=== PATIENT | female | born 1960 | race Caucasian/White ===

== ENCOUNTER 2022-01-23 09:22 | Emergency (ER) | payer OTHER, SELFPAY ==
--- NOTE | ~2022-01-23 | XR_ITS ---
EXAMINATION: XR CHEST CLINICAL INFORMATION: Shortness of breath. COMPARISON: None TECHNIQUE: 2 views of the chest were obtained. FINDINGS: No significant abnormality is noted involving the heart, lungs, mediastinum, bony thorax or soft tissues. XR/XR chest 2V IMPRESSION: Unremarkable examination.
[2022-01-23 10:06] VITALS: BP 174/97; PULSE 87; RESP 20; TEMP 36.8; O2SAT 95; BMI 27.1
[2022-01-23 10:56] LABS: MANUAL DIFF FLAG NO
[2022-01-23 11:08] LABS: Basophils Absolute Auto 0.1 X10*3/uL (0.0-0.2); Basophils Percent Auto 0.6 % (0-2); Eosinophils Percent Auto 0.4 % (0-4); Hematocrit 42.3 % (37.0-47.0); Hemoglobin 13.8 g/dl (12.0-16.0); Imm Gran Abs Auto 0.04 X10*3/uL (0.00-0.03); Imm Gran Pct Auto 0.5 % (0.0-0.4); Lymphocytes Percent Auto 36.5 % (20-40); Mean Corpuscular HGB Conc 32.6 g/dl (31.0-35.0); Mean Corpuscular Hemoglobin 28.8 pg (27.0-33.0); Mean Corpuscular Volume 88.1 fL (80.0-98.0); Mean Platelet Volume 9.4 fL (9.4-12.3); Monocytes Absolute Auto 1.2 X10*3/uL (0.1-1.2); Platelet Count 304 X10*3/uL (160-400); Red Cell Distribution Width 13.3 % (11.0-16.0); White Blood Count 8.3 X10*3/uL (4.8-10.8)
[2022-01-23 11:28] LABS: Alanine Aminotransferase 18 U/L (0-31); Albumin Level 4.8 g/dL (3.5-5.0); Alkaline Phosphatase 70 U/L (39-117); Anion Gap 13 (12-20); Aspartate Amino Transferase 22 U/L (5-31); Bilirubin Direct < 0.2 mg/dL (0.0-0.5); Bilirubin Total < 0.2 mg/dL (0.0-1.0); Blood Urea Nitrogen 14 mg/dL (9-16); Calcium 9.6 mg/dL (8.4-10.2); Carbon Dioxide 25 mmol/L (22-29); Chloride 108 mmol/L (96-108); Estimated Glomerular Filt Rate > 60; Glucose Random 101 mg/dL (60-115); Lipase 21 U/L (8-78); Potassium 3.9 mmol/L (3.3-5.1); Sodium 142 mmol/L (135-145); Total Protein 7.6 g/dL (6.5-8.0)
--- NOTE | 2022-01-23 14:03 | ED_ITS ---
HPI - General Adult General Chief complaint: Dyspnea Stated complaint: Cough/Headache Time Seen by Provider: 01/23/22 13:42 Source: patient Mode of arrival: ambulatory Limitations: no limitations History of Present Illness HPI narrative: This is a 61 years old female presented to the emergency department with a chief complaint of cough congestion she visited the urgent care she was placed on prednisone albuterol no better. Denies any fever and chills Onset (ago): day(s) (2) Location: chest Radiation: non-radiation Severity: mild Pain Consistency: constant Relieving factors: none Related Data Previous Rx's Medication Instructions Recorded doxycycline monohydrate 100 mg 100 mg PO BID #14 caps 01/23/22 capsule Allergies Allergy/AdvReac Type Severity Reaction Status Date / Time No Known Allergies Allergy Verified 01/23/22 10:10 Review of Systems Constitutional: Constitutional: Reports no additional constitutional complaints Eyes: Eyes: Reports no additional eye complaints Cardiovascular: Cardiovascular: Reports no additional cardiovascular compla ints Respiratory: Respiratory: Reports cough Musculoskeletal: Musculoskeletal: Reports no additional musculoskeletal complaints PMFSH Social History Social History Advance Directives: No Advance Directives Information Provided: Yes Physical Exam ED Vital Signs: Vital Signs - 24 hr 01/23/22 10:06 Temperature 98.2 F Pulse Rate 87 Respiratory Rate 20 Blood Pressure 174/97 H Pulse Oximetry 95 Oxygen Delivery Method Room Air BMI result Body Mass Index 27.1 Const General: cooperative Nutritional Appearance: average body habitus and well nourished Orientation/consciousness: patient oriented x3 Limitations: no limitations HENMT Head: Yes normal to inspection General nose exam: Normal external nose present Face and sinus: Yes normal facial exam Mouth: Normal oral and palatal mucosa present Throat: Yes posterior oropharynx normal Neck Neck: Yes normal visual inspection and Yes no lymphadenopathy Thyroid: Thyroid normal Chest Chest palpation & inspection: normal inspection of the chest Resp Effort & Inspection: normal respiratory effort Auscultation: rhonchi Percussion: percussion normal Cardio Palpation: normal PMI Rhythm: regular rhythm GI Inspection: Yes normal to inspection Palpation (GI): Soft to palpation, not firm, nontender and no guarding General: Yes no CVA tenderness Back/Spine/Pelvis Back: no CVA tenderness Neuro General: patient oriented x3 Medical Decision Making [facility] Narrative Medical decision making narrative: Patient is oxygenating well she has a normal chest x-ray I will treat as bronchitis I will prescribe doxycycline 100 mg p.o. b.i.d., COVID test is negative Lab Data Result diagrams: 01/23/22 10:52 01/23/22 10:52 Labs: Lab Results 01/23/22 01/23/22 01/23/22 Range/Units 10:52 10:52 13:46 WBC 8.3 (4.8-10.8) X10*3/uL RBC 4.80 (4.20-5.50) X10*6/uL Hgb 13.8 (12.0-16.0) g/dl Hct 42.3 (37.0-47.0) % MCV 88.1 (80.0-98.0) fL MCH 28.8 (27.0-33.0) pg MCHC 32.6 (31.0-35.0) g/dl RDW 13.3 (11.0-16.0) % Plt Count 304 (160-400) X10*3/uL MPV 9.4 (9.4-12.3) fL Immature Gran % (Auto) 0.5 H (0.0-0.4) % Neut % (Auto) 48.0 (45-73) % Lymph % (Auto) 36.5 (20-40) % [place] % (Auto) 14.0 H (2-11) % Eos % (Auto) 0.4 (0-4) % Baso % (Auto) 0.6 (0-2) % Lymph # (Auto) 3.0 (1.2-4.9) X10*3/uL [place] # (Auto) 1.2 (0.1-1.2) X10*3/uL Eos # (Auto) 0.0 (0.0-0.4) X10*3/uL Baso # (Auto) 0.1 (0.0-0.2) X10*3/uL Abs Immat Gran (auto) 0.04 H (0.00-0.03) X10*3/uL Absolute Neuts (auto) 4.0 (2.0-8.3) x10*3/uL Absolute Nucleated RBC 0.000 (0.0-0.012) X10*3/uL Nucleated RBC % (auto) 0.0 (0.0-0.2) /100WBC Sodium 142 (135-145) mmol/L Potassium 3.9 (3.3-5.1) mmol/L Chloride 108 (96-108) mmol/L Carbon Dioxide 25 (22-29) mmol/L Anion Gap 13 (12-20) BUN 14 (9-16) mg/dL Creatinine 0.87 (0.5-1.4) mg/dL Estim Creat Clear Calc 65.0 Estimated GFR > 60 Random Glucose 101 (60-115) mg/dL Calcium 9.6 (8.4-10.2) mg/dL Total Bilirubin < 0.2 (0.0-1.0) mg/dL Direct Bilirubin < 0.2 (0.0-0.5) mg/dL AST 22 (5-31) U/L ALT 18 (0-31) U/L Alkaline Phosphatase 70 (39-117) U/L Total Protein 7.6 (6.5-8.0) g/dL Albumin 4.8 (3.5-5.0) g/dL Lipase 21 (8-78) U/L COVID-19 (JACK) Negative (Negative) COVID-19 Clin Com See Note Imaging Data Chest x-ray: Radiologist's impression: Accession Number(s): [id number] cc: Generic ED Physician~ EXAMINATION: XR CHEST CLINICAL INFORMATION: Shortness of breath. COMPARISON: None TECHNIQUE: 2 views of the chest were obtained. FINDINGS: No significant abnormality is noted involving the heart, lungs, mediastinum, bony thorax or soft tissues. XR/XR chest 2V IMPRESSION: Unremarkable examination. Dictated By: Rubi Curiel Signed By: <Electronically signed by Rubi? Veena in OV> 01/23/22 1046 DD/ 1035 TD/TT:? [employer]ing Press Operator: Discharge Plan Discharge Clinical Impression: Bronchitis Patient Disposition: Home, Self-Care Instructions: Acute Bronchitis (ED) Additional Instructions: Follow-up with primary care physician return to emergency room if you worse any concern Prescriptions: New doxycycline monohydrate 100 mg capsule 100 mg PO BID Qty: 14 0RF Referrals: Zo Cazares MD [Primary Care Provider] - 2 days Interventions: ED Discharge Assessment Last Done: 01/23/22 15:43 Discharge Date/Time: 01/23/22 15:44
[2022-01-23 14:20] LABS: COVID-19 Test Negative (Negative); IDNOW Serial# 9DB6401D
== END 2022-01-23 15:44 | disposition home or self-care (01) ==
PROVIDERS: Emergency Provider Emergency Medicine; PCP Internal Medicine
DX: J40 Bronchitis, not specified as acute or chronic (principal); R05.9 Cough, unspecified; R06.02 Shortness of breath; Z20.822 Contact with and (suspected) exposure to COVID-19; Z79.899 Other long term (current) drug therapy
CPT/HCPCS: 36415; 71046; 80048; 80076; 83690; 85025; 87635; 99282; 99283

== ENCOUNTER → 2022-11-15 11:04 | Outpatient (BNVA) | payer OTHER, SELFPAY | PROVIDERS: PCP Internal Medicine; Visit Provider Advanced Practice Midwife ==

== ENCOUNTER 2022-12-21 12:28 | Outpatient (REF) | payer OTHER, SELFPAY ==
--- NOTE | ~2022-12-21 | MM_ITS ---
EXAMINATION: MM SCREENING DIGITAL BREAST TOMOSYNTHESIS, BILATERAL CLINICAL INFORMATION: Screening. Asymptomatic. The lifetime risk of breast cancer based on the Tyrer-Cuzick Model is 4%. COMPARISON: Outside mammography: 11/09/2021, 01/21/2019, 01/14/2019, 08/13/2013 ([facility]). TECHNIQUE: Digital breast tomosynthesis is performed in both the craniocaudal and mediolateral oblique views along with computer-aided detection (CAD). Synthesized 2D images are generated from the tomosynthesis. FINDINGS: There are scattered areas of fibroglandular density (ACR BI-RADS breast composition Category b). There are no significant masses, abnormal calcifications, or other abnormalities. No developing density or architectural abnormality. The axilla are unremarkable. There is chronic mild bilateral nipple retraction. No significant changes from prior outside studies. MM/MM tomosynthesis screening BI IMPRESSION: No mammographic evidence of malignancy. ASSESSMENT: BI-RADS 2: Benign RECOMMENDATION: Routine annual mammography screening. This patient's information was entered into a reminder system with a target due date for their next mammogram.
== END 2022-12-21 12:29 | disposition home or self-care (01) ==
LOC: HO.MAMMO 12:28
PROVIDERS: PCP Internal Medicine; Visit Provider Advanced Practice Midwife
DX: Z12.31 Encounter for screening mammogram for malignant neoplasm of breast (principal)
CPT/HCPCS: 77063; 77067

== ENCOUNTER 2024-02-14 08:00 | Outpatient (RCR) | payer OTHER, BC, SELFPAY | END 2024-03-13 09:10 | disposition home or self-care (01) | LOC: HO.PTCHIC 08:00 | PROVIDERS: PCP Family Medicine; Visit Provider Orthopaedic Surgery | DX: M75.42 Impingement syndrome of left shoulder (principal) | CPT/HCPCS: 97110; 97140; 97162; 97164 ==

== ENCOUNTER 2025-03-10 12:46 | Outpatient (REF) | payer BC, SELFPAY ==
--- OUTSIDE RECORDS SUMMARY | 2025-03-06 08:30 | XMS_ITS | Encounter Summary ---
Author Organization [facility] Address [address] [place] [address] Care Team Providers Care Director Organizational Name Role Phone Nya Palomino MD Primary Care Pr ovider Reason for Referral * Medications - Closed Specialty Diagnoses / Procedures Referred By Radha sosa Referred To Contact Diagnoses Type 2 diabetes mellitus with diabetic polyneuropathy, without long-term current use of insulin (CMS/HCC V24, CMS/HCC V28) Overweight (BMI 25.0-29.9) Nya Palomino MD [address] [place] [address] Phone: tel: fax: Referral ID Status Reason Start Date Expiration Date Visits Re quested Visits Authorized [id number] Closed 1 1 * Consultation (Routine) - Closed Specialty Diagnoses / Procedures Referred By Radha sosa Referred To Contact Ophthalmology Diagnoses Type 2 diabetes mellitus with diabetic polyneuropathy, without long-term current use of insulin (CMS/HCC V24, CMS/HCC V28) Nya Palomino MD [address] [place] [address] Phone: tel: fax: Shaji Lanza MD [address] [place] [address] Phone: tel: fax: Referral ID Status Reason Start Date Expiration Date V isits Requested Visits Authorized [id number] Closed Specialty Services Required 03/06/2025 03/06/2026 6 6 Reason for Visit * Reason Comments Follow-up Medication review Encounter Details Date Type Department Care Team (Late st Contact Info) Description 03/06/2025 8:30 AM EDT Office Visit Adult Medicine [address] [phone] Nya Palomino MD [address] [place] [address] Primary hypertension (Primary Dx); Hypercholesterolemia ; Hyperthyroidism; Primary insomnia; Anxiety; Type 2 diabetes mellitus with diabetic polyneuropathy, without long-term current use of insulin (CMS/HCC V24, CMS/HCC V28); Overweight (BMI 25.0-29.9); Sensory neuropathy Social History Tobacco Use Types Packs/Day Years Used Date Smoking Tobacco: Former Cigarettes 0.3 15 0 07/02/1992 - 07/09/2007 Smokeless Tobacco: Never Tobacco Cessation:Counseling Given: Not Answered Alcohol Use Standard Drinks/Week Comments No 0 (1 standard drink = 0.6 oz pur e alcohol) Housing Instability Answer Date Recorde d Are you worried that in the next 2 months you may not have stable housing? No 08/13/2024 Food Access & Nutrition Answer Date Rec orded Do you have access to a vari ety of food including fruits and vegetables? Yes 08/13/2024 Health Literacy Answer Date Recorded How often do you need to hav e someone help you when you read instructions, pamphlets, or other written material from your doctor or pharmacy? Never 08/13/2024 Caregiver: How often do you need to have someone help you when you read instructions, pamphlets, or other written material from your doctor or pharmacy? Not on file 08/13/2024 Financial Risk Answer Date Recorded How hard is it for you to pa y for the very basics like food, housing, medical care, and air conditioning / heating? Very hard 08/13/2024 Transportation Answer Date Recorded Has the lack of transportati on kept you from meetings, work, or from getting things needed for daily living? Not on file 08/13/2024 Has the lack of transportati on kept you from medical appointments or from getting medications? No 08/13/2024 Social Isolation Answer Date Recorded How often do you feel lonely or isolated from th ose around you? Rarely 08/13/2024 Food Risk Answer Date Recorded Within the past 12 months we worried whether our food would run out before we got money to buy more. Never true 08/13/2024 Within the past 12 months th e food we bought just didn't last and we didn't have money to get more. Never true 08/13/2024 Dependent Care Answer Date Recorded Do you need help finding or paying for care for your loved ones. For example, child care supervisor or elderly care for an older adult? No 08/13/2024 Education Answer Date Recorded Do you think completing more education or training, like finishing a GED, going to college, or learning a trade, would be helpful for you? No 08/13/2024 Employment and Income Answer Date Recor ded During the last four weeks, have you been actively looking for work? No 08/13/2024 Living Situation Answer Date Recorded What is your living situation? 0 08/13/2024 Comments No Sex and Gender Information Value Date Recorded Sex Assigned at Not on file Legal Sex Female 3:01 PM EST Gender Identity Not on file Sexual Orientation Not on file documented as of this encounter Last Filed Vital Signs Vital Sign Reading Time Taken Comments Blood Pressure 128/80 03/06/2025 8:02 AM EDT Pulse 94 03/06/2025 8:02 AM EDT Temperature 36.6 C (97.9 F) 03/06/2025 8:02 AM EDT Respiratory Rate 16 03/06/2025 8:02 AM EDT Oxygen Saturation 97% 03/06/2025 8:02 AM EDT Inhaled Oxygen Concentration - - Weight 72.1 kg (159 lb) 03/06/2025 8:02 AM EDT Height 161.3 cm (5' 3.5 ) 03/06/2025 8:02 AM EDT Body Mass Index 27.72 03/06/2025 8:02 AM EDT documented in this encounter Ordered Prescriptions Prescription Sig Dispense Quantity Refills Last Filled Start Date End Date tirzepatide, weight loss, (ZEPBOUND) 2.5 mg/0.5 mL injectionIndicatio ns:Type 2 diabetes mellitus with diabetic polyneuropathy, without long-term current use of insulin ([facility] V24, [facility] V28),Overweight (BMI 25.0-29.9) Inject 0.5 mL (2.5 mg total) under the skin every 7 (seven) days. 2 mL 03/06/2025 04/05/2025 metoprolol succinate (TOPROL-XL) 50 mg 24 hr tabletIndications: Primary hypertension Take 1 tablet (50 mg total) by mouth 1 (one) time each day. 90 tablet 1 03/06/2025 losartan-hydroCHLO ROthiazide (HYZAAR) 50-12.5 mg per tabletIndications: Primary hypertension Take 1 tablet by mouth 1 (one) time each day. 90 tablet 1 03/06/2025 documented in this encounter Progress Notes * Nya Palomino MD - 03/06/2025 8:30 AM EDTAssociated Problem(s): Hypertension Well controlled Continue current meds Orders: losartan-hydroCHLOROthiazide (HYZAAR) 50-12.5 mg per tablet; Take 1 tablet by mouth 1 (one) time each day. metoprolol succinate (TOPROL-XL) 50 mg 24 hr tablet; Take 1 tablet (50 mg total) by mouth 1 (one) time each day. * Nya Palomino MD - 03/06/2025 8:30 AM EDTAssociated Problem(s): Hypercholesterolemia Continue taking Crestor 5 mg four times a week. Continue CoQ 10 daily Will update labs next month LDL is not at goal If still not at goal at next visit will refer to cardiology for repatha Orders: Lipid panel with reflex to direct LDL; Future * Nya Palomino MD - 03/06/2025 8:30 AM EDTAssociated Problem(s): Hyperthyroidism Continue methimazole daily * Nya Palomino MD - 03/06/2025 8:30 AM EDTAssociated Problem(s): Insomnia Continue hydroxyzine 25 mg nightly as needed * Nya Palomino MD - 03/06/2025 8:30 AM EDTAssociated Problem(s): Anxiety Continue hydroxyzine 25 mg nightly as needed * Nya Palomino MD - 03/06/2025 8:30 AM EDTAssociated Problem(s): Type 2 diabetes mellitus, without long-term current use of insulin ([facility] V24, [facility] V28) Counseled on possible side effects of zepbound Medication sent to help with weight loss Will update labs next month Lifestyle counseling provided Orders: Hemoglobin A1c; Future Microalbumin creatinine urine ratio; Future Ambulatory referral to Ophthalmology; Future tirzepatide, weight loss, (ZEPBOUND) 2.5 mg/0.5 mL injection; Inject 0.5 mL (2.5 mg total) under the skin every 7 (seven) days. * Nya Palomino MD - 03/06/2025 8:30 AM EDTAssociated Problem(s): Sensory neuropathy Unable to tolerate gabapentin Has appt with neurology at [facility] in [facility] * Nya Palomino MD - 03/06/2025 8:30 AM EDTAssociated Problem(s): Overweight (BMI 25.0-29.9) As above Orders: tirzepatide, weight loss, (ZEPBOUND) 2.5 mg/0.5 mL injection; Inject 0.5 mL (2.5 mg total) under the skin every 7 (seven) days. * Nya Palomino MD - 03/06/2025 8:30 AM EDT Images from the original note were not included. Chief Complaint Eusebia Herron is a 64 y.o. female presenting for Follow-up and Medication review Subjective Hypertension: Continues on losartan-hydrochlorothiazide 50-12.5 mg daily, metoprolol 50 mg daily. Blood pressure is 128/80 today Hyperlipidemia: taking Crestor 5 mg four times a week. Unable to tolerate daily dose due to burningand tingling as well as pain in the feet. Able to tolerate three times a week dosing. She continueswith Coq10 daily Completed EMG testing recently which showed normal motor and sensory nerve conduction study of the lower extremities except for sensory axonal loss in the left peroneal and sural nerve suggestive of sensory neuropathy but is quite asymmetric. Normal EMG of the left L5-S1 innervated muscles. She was prescribed gabapentin 300 mg nightly. States that it helped her symptoms but then she noticed it was giving her anxiety and a tingling sensation in her right ear She has an appt with neurologist at [facility] in [place] Hyperthyroidism: Follows with endocrinology- Dr. Dorado at [facility] . Continues on methimazole Continues on hydroxyzine 25 mg nightly as needed for insomnia/anxiety Type 2 DM /overweight: now with DM with recent A1c of 6.7 in December. walking on average 2.5 miles twice a week No personal history of thyroid cancer. Niece has a hx of thyroid cancer but she is currently on ozempic Denies hx of gallstones or pancreatitis She denies alcohol or tobacco use Current weight: 159lbs Has mammogram scheduled at [facility] on 03/10/25 Her [employer] is also located at [facility]. She is due for a Pap smear and is advised to call to schedule The following portions of the patient's history were reviewed by a provider in this encounter and updated as appropriate: Meds Allergies: She has No Known Allergies. Medications: Current Outpatient Medications Medication Instructions hydrOXYzine HCL (ATARAX) 25 mg, oral, Nightly PRN losartan-hydroCHLOROthiazide (HYZAAR) 50-12.5 mg per tablet 1 tablet, oral, Daily methIMAzole (TAPAZOLE) 5 mg tablet 1 tablet, Daily metoprolol succinate (TOPROL-XL) 50 mg, oral, Daily rosuvastatin (CRESTOR) 5 mg, oral, Daily tirzepatide (weight loss) (ZEPBOUND) 2.5 mg, subcutaneous, Every 7 days Depression Screening (PHQ2/9): Depression Screening Over the last 2 weeks, how often have you been bothered by little interest or pleasure in doing things?: (Patient-Rptd) Not at all Over the last 2 weeks, how often have you been bothered by feeling down, depressed, or hopeless?: (Patient-Rptd) Not at all Depression Risk: (Patient-Rptd) 0 PHQ9 Full Set of Questions Over the last 2 weeks, how often have you been bothered by little interest or pleasure in doing things?: (Patient-Rptd) Not at all Over the last 2 weeks, how often have you been bothered by feeling down, depressed, or hopeless?: (Patient-Rptd) Not at all PHQ -9 Depression Risk Score: (Patient-Rptd) 0 Screening Result: (Patient-Rptd) Negative Risk Category: (Patient-Rptd) Negative Anxiety Screening: Social Influencer of Health (SIOH): Review of Systems: Review of Systems Objective BP 128/80 Pulse 94 Temp 36.6 ??C (97.9 ??F) (Temporal) Resp 16 Ht 1.613 m (63.5 ) Wt 72.1kg (159 lb) BMI 27.72 kg/m?? SpO2: 97 % Physical Exam Constitutional: General: She is not in acute distress. Appearance: Normal appearance. She is not toxic-appearing. HENT: Head: Normocephalic and atraumatic. Cardiovascular: Rate and Rhythm: Normal rate and regular rhythm. Pulses: Normal pulses. Heart sounds: No murmur heard. Pulmonary: Effort: Pulmonary effort is normal. No respiratory distress. Breath sounds: Normal breath sounds. No wheezing. Abdominal: Palpations: Abdomen is soft. Tenderness: There is no abdominal tenderness. Musculoskeletal: Right lower leg: No edema. Left lower leg: No edema. Neurological: General: No focal deficit present. Mental Status: She is alert and oriented to person, place, and time. Psychiatric: Mood and Affect: Mood normal. Behavior: Behavior normal. Thought Content: Thought content normal. Lab Results Component Value Date CHOL 202 (H) 01/09/2025 TRIG 195 (H) 01/09/2025 HDL 48 01/09/2025 ALT 33 01/09/2025 AST 23 01/09/2025 NA 139 01/09/2025 K 4.7 01/09/2025 CL 107 01/09/2025 CREATININE 0.84 01/09/2025 BUN 11 01/09/2025 CO2 26 01/09/2025 TSH 1.56 01/09/2025 HGBA1C 6.7 (H) 01/09/2025 Lab Results Component Value Date LDLCALC 115 (H) 01/09/2025 Assessment/Plan Assessment & Plan Primary hypertension Well controlled Continue current meds Orders: losartan-hydroCHLOROthiazide (HYZAAR) 50-12.5 mg per tablet; Take 1 tablet by mouth 1 (one) time each day. metoprolol succinate (TOPROL-XL) 50 mg 24 hr tablet; Take 1 tablet (50 mg total) by mouth 1 (one) time each day. Hypercholesterolemia Continue taking Crestor 5 mg four times a week. Continue CoQ 10 daily Will update labs next month LDL is not at goal If still not at goal at next visit will refer to cardiology for repatha Orders: Lipid panel with reflex to direct LDL; Future Hyperthyroidism Continue methimazole daily Primary insomnia Continue hydroxyzine 25 mg nightly as needed Anxiety Continue hydroxyzine 25 mg nightly as needed Type 2 diabetes mellitus with diabetic polyneuropathy, without long-term current use of insulin ([facility] V24, [facility] V28) Counseled on possible side effects of zepbound Medication sent to help with weight loss Will update labs next month Lifestyle counseling provided Orders: Hemoglobin A1c; Future Microalbumin creatinine urine ratio; Future Ambulatory referral to Ophthalmology; Future tirzepatide, weight loss, (ZEPBOUND) 2.5 mg/0.5 mL injection; Inject 0.5 mL (2.5 mg total) under the skin every 7 (seven) days. Overweight (BMI 25.0-29.9) As above Orders: tirzepatide, weight loss, (ZEPBOUND) 2.5 mg/0.5 mL injection; Inject 0.5 mL (2.5 mg total) under the skin every 7 (seven) days. Sensory neuropathy Unable to tolerate gabapentin Has appt with neurology at [facility] in [place] Advised to obtain the flu vaccine and RSV vaccine at her local pharmacy Has mammogram scheduled at [facility] on 03/10/25 Her [employer] is also located at [facility]. She is due for a Pap smear and is advised to call to schedule Nya Palomino MD [facility] [address] Dept: [phone] Dept Date of Visit: 03/06/2025 documented in this encounter Plan of Treatment Upcoming Encounters Date Type Department Care Team (Late st Contact Info) Description 06/10/2025 4:00 PM EST Office Visit [address] [phone] Nya Palmoino MD [address] [place] [address] Scheduled Orders Name Type Priority Associated Diagnoses Orde r Schedule Lipid panel with reflex to direct LDL Lab Routine Hypercholesterolemia Expected: 04/05/2025, Expires: 03/06/2026 Hemoglobin A1c Lab Routine Type 2 diabetes mellitus with diabetic polyneuropathy, without long-term current use of insulin ([facility] V24, [facility] V28) Expected: 04/05/2025, Expires: 03/06/2026 Microalbumin creatinine urine ratio Lab Routine Type 2 diabetes mellitus with diabetic polyneuropathy, without long-term current use of insulin ([facility] V24, [facility] V28) Expected: 04/05/2025, Expires: 03/06/2026 Scheduled Referrals Name Type Priority Associated Diagnoses Order Schedule Ambulatory referral to Ophthalmology Outpatient Referral Routine Type 2 diabetes mellitus with diabetic polyneuropathy, without long-term current use of insulin ([facility] V24, [facility] V28) 1 Occurrences starting 03/06/2025 until 03/06/2026 documented as of this encounter Visit Diagnoses Diagnosis Primary hypertension- Primary Unspecified essential hypertension Hypercholesterolemia Pure hypercholesterolemia Hyperthyroidism Thyrotoxicosis without mention of goiter or other cause, without mention of thyrotoxic crisis or storm Primary insomnia Persistent disorder of initiating or maintaining sleep Anxiety Anxiety state, unspecified Type 2 diabetes mellitus with diabetic polyneuropathy, without long-term current use of insulin ([facility] V24, [facility] V28) Overweight (BMI 25.0-29.9) Overweight Sensory neuropathy Unspecified hereditary and idiopathic peripheral neuropathy documented in this encounter Discontinued Medications Medication Sig Discontinue Reason Start Date End Da te gabapentin (NEURONTIN) 300 mg capsule Take 1 capsule (300 mg total) by mouth at bedtime. Side effects 12/31/2024 03/06/2025 losartan-hydroCHLOROthiaz eleonora (HYZAAR) 50-12.5 mg per tabletIndications:Primary hypertension Take 1 tablet by mouth 1 (one) time each day. Reorder 10/13/2024 03/06/2025 metoprolol succinate (TOPROL-XL) 50 mg 24 hr tablet TAKE 1 TABLET BY MOUTH DAILY Reorder 10/28/2024 03/06/2025 documented as of this encounter Additional Health Concerns Assessment Noted Time PHQ-9 Depression Total Score: 0 02/28/20 25 10:33 AM EDT documented as of this encounter Care Teams Director Organizational Relationship Specialty Start Date End Date Nya Palomino MD [address] [place] [address] PCP - General 07/04/23 documented as of this encounter
--- OUTSIDE RECORDS SUMMARY | 2025-03-10 15:05 | XMS_ITS | Encounter Summary ---
Author Organization [facility] Address [address] [place] [address] Care Team Providers Care Superintendent Automotive Name Role Phone Nya Palomino MD Primary Care Pr ovider Reason for Visit * Reason Onset Date Comments prior auth 03/09/2025 Encounter Details Date Type Department Care Team (Late st Contact Info) Description 03/09/2025 Telephone Adult Medicine [address] [phone] Nya Palomino MD [address] [place] [phone] Social History Tobacco Use Types Packs/Day Years Used Date Smoking Tobacco: Former Cigarettes 0.3 15 0 07/02/1992 - 07/09/2007 Smokeless Tobacco: Never Alcohol Use Standard Drinks/Week Comments No 0 [...] your loved ones. For example, child care sitter or elderly care for an older adult? [...] on file documented as of this encounter Progress Notes * Lea Tidwell MA - 03/09/2025 1:10 PM EDT PA for zepbound initiated today on [facility] Dx Obesity,htn, dm Clinicals notes uploaded and sent to insurance company awaiting for insurance determination. * Carolina Treviño - 03/09/2025 12:40 PM EDT Prior Authorization for Medication-do not complete and send this encounter unless you have the fax from the pharmacy. Is this a Cover My Meds request: Yes -- [place] Code [id number] Name of Medication Zepbound Dose of Medication 2.5 mg What is the RX # from the faxed refill? How does patient take this med? Inject 0.5 mL (2.5 mg total) under the skin every 7 (seven} days What Pharmacy did the fax come from: [facility] fax #: [phone] documented in this encounter Plan of Treatment Upcoming Encounters Date Type Department Care Team (Late st Contact Info) Description 06/10/2025 4:00 PM EST Office Visit Adult Medicine [address] [phone] Nya Palomino MD [address] [place] [address] documented as of this encounter Visit Diagnoses Not on filedocumented in this encounter Additional Health Concerns Assessment Noted Time PHQ-9 Depression Total Score: 0 02/28/20 25 10:33 AM EDT documented as of this encounter Care Teams Superintendent Automotive Relationship Specialty Start Date End Date Nya Palomino MD [address] [place] [address] PCP - General 07/04/23 documented as of this encounter
--- OUTSIDE RECORDS SUMMARY | 2025-03-10 15:05 | XMS_ITS | Clinical Summary ---
Author Organization [facility] Address [address] [place] [phone] Phone Care Team Providers Care Upholstery Cutter Name Role Phone Nya Palomino MD Primary Care Pr ovider Allergies No known active allergies Medications methIMAzole (TAPAZOLE) 5 mg tablet Take 1 tablet (5 mg total) by mouth 1 (one) time each day. Active rosuvastatin (CRESTOR) 5 mg tablet Take 1 tablet (5 mg total) by mouth 1 (one) time each day. 90 tablet 1 5 Active hydrOXYzine HCL (ATARAX) 25 mg tabletIndications :Primary insomnia,Anxiety Take 1 tablet (25 mg total) by mouth at bedtime as needed for anxiety (sleep). 90 tablet 1 5 Active losartan-hydroCHL OROthiazide (HYZAAR) 50-12.5 mg per tabletIndications :Primary hypertension Take 1 tablet by mouth 1 (one) time each day. 90 tablet 1 5 Active metoprolol succinate (TOPROL-XL) 50 mg 24 hr tabletIndications :Primary hypertension Take 1 tablet (50 mg total) by mouth 1 (one) time each day. 90 tablet 1 5 Active tirzepatide, weight loss, (ZEPBOUND) 2.5 mg/0.5 mL injectionIndicati ons:Type 2 diabetes mellitus with diabetic polyneuropathy, without long-term current use of insulin ([facility] V24, [facility] V28),Overweight (BMI 25.0-29.9) Inject 0.5 mL (2.5 mg total) under the skin every 7 (seven) days. 2 mL 5 04/05/20 25 Active losartan-hydroCHL OROthiazide (HYZAAR) 50-12.5 mg per tabletIndications :Primary hypertension Take 1 tablet by mouth 1 (one) time each day. 90 tablet 1 5 03/06/20 25 Discontinu ed(Reorder ) metoprolol succinate (TOPROL-XL) 50 mg 24 hr tablet TAKE 1 TABLET BY MOUTH DAILY 90 tablet 1 5 03/06/20 25 Discontinu ed(Reorder ) gabapentin (NEURONTIN) 300 mg capsule Take 1 capsule (300 mg total) by mouth at bedtime. 90 each 5 03/06/20 Discontinu ed(Side effects) Active Problems Problem Noted Date Diagnosed Date Overweight (BMI 25.0-29.9) 03/06/2025 Assessment & Plan (03/06/2025 8:27 AM EDT): As above Orders: tirzepatide, weight loss, (ZEPBOUND) 2.5 mg/0.5 mL injection; Inject 0.5 mL (2.5 mg total) under the skin every 7 (seven) days. Sensory neuropathy 12/31/2024 Overview (12/31/2024): Left (noted on EMG) Assessment & Plan (03/06/2025 8:27 AM EDT): Unable to tolerate gabapentin Has appt with neurology at [facility] in Novemeber Anxiety 08/13/2024 Assessment & Plan (03/06/2025 8:27 AM EDT): Continue hydroxyzine 25 mg nightly as needed Assessment & Plan (10/13/2024 1:15 PM EDT): Continue hydroxyzine as needed Orders: hydrOXYzine HCL (ATARAX) 25 mg tablet; Take 1 tablet (25 mg total) by mouth at bedtime as needed for anxiety (sleep). Insomnia 08/13/2024 Assessment & Plan (03/06/2025 8:27 AM EDT): Continue hydroxyzine 25 mg nightly as needed Assessment & Plan (10/13/2024 1:15 PM EDT): Continue hydroxyzine as needed Orders: hydrOXYzine HCL (ATARAX) 25 mg tablet; Take 1 tablet (25 mg total) by mouth at bedtime as needed for anxiety (sleep). Type 2 diabetes mellitus, [facility] long-term current use of insulin ([facility] V24, [facility] V28) 06/01/2022 Assessment & Plan (03/06/2025 8:27 AM EDT): Counseled on possible side effects of zepbound Medication sent to help with weight loss Will update labs next month Lifestyle counseling provided Orders: Hemoglobin A1c; Future Microalbumin creatinine urine ratio; Future Ambulatory referral to Ophthalmology; Future tirzepatide, weight loss, (ZEPBOUND) 2.5 mg/0.5 mL injection; Inject 0.5 mL (2.5 mg total) under the skin every 7 (seven) days. Assessment & Plan (10/13/2024 1:15 PM EDT): Continue with lifestyle management. Last A1c was 6.1 in August Orders: Hemoglobin A1c; Future Comprehensive metabolic panel; Future Hyperthyroidism 08/23/2020 Assessment & Plan (03/06/2025 8:27 AM EDT): Continue methimazole daily Assessment & Plan (10/13/2024 1:15 PM EDT): Continue [facility] endocrinology follow-up. Continue methimazole Orders: Thyroid stimulating hormone with reflex to free t4 and free t3; Future Hypertension 04/10/2017 Assessment & Plan (03/06/2025 8:27 AM EDT): Well controlled Continue current meds Orders: losartan-hydroCHLOROthiazide (HYZAAR) 50-12.5 mg per tablet; Take 1 tablet by mouth 1 (one) time each day. metoprolol succinate (TOPROL-XL) 50 mg 24 hr tablet; Take 1 tablet (50 mg total) by mouth 1 (one) time each day. Assessment & Plan (10/13/2024 1:15 PM EDT): Blood pressure is reasonably controlled here today but much better controlled at home She will continue losartan that hydrochlorothiazide daily and metoprolol 50 mg a day Orders: losartan-hydroCHLOROthiazide (HYZAAR) 50-12.5 mg per tablet; Take 1 tablet by mouth 1 (one) time each day. Hypercholesterolemia 10/13/2013 Assessment & Plan (03/06/2025 8:27 AM EDT): Continue taking Crestor 5 mg four times a week. Continue CoQ 10 daily Will update labs next month LDL is not at goal If still not at goal at next visit will refer to cardiology for repatha Orders: Lipid panel with reflex to direct LDL; Future Assessment & Plan (10/13/2024 1:15 PM EDT): Unable to tolerate Crestor 5 mg every single day. She thinks the Crestor is causing neuropathy in her feet. Has been taking the medication 3 days a week. Her recent cholesterol levels are abnormal. She will try to increase this to 5 days a week. If she is still unable to tolerate the medication, advised we can try simvastatin. For now she wants to try to increase the Crestor to 5 mg 5 days a week. Will update labs in 3 months Orders: Lipid panel with reflex to direct LDL; Future Hepatitis C antibody test positive 06/24/2012 Overview (09/07/2023): Screening CORNEL pos but PCR neg by quantitative and qualitative assays. Assessment & Plan (10/13/2024 1:15 PM EDT): Hep C viral load was done in June 2012 and negative. Hep C virus antibody was positive in December 2011. Will update viral load Orders: Hepatitis C virus quantitative molecular study; Future Rotator cuff tendinitis 11/23/2010 Cervical radiculopathy 10/27/2010 Shoulder pain, bilateral 10/27/2010 Sinusitis, chronic 03/09/2010 Encounters Date Type Department Care Team Description 03/09/2025 Telephone Adult Medicine [address] [phone] Nya Palomino MD 03/06/2025 8:30 AM EDT Office Visit Adult [address] [phone] Nya Palomino MD Primary hypertension (Primary Dx); Hypercholesterolemia; Hyperthyroidism; Primary insomnia; Anxiety; Type 2 diabetes mellitus with diabetic polyneuropathy, without long-term current use of insulin ([facility] V24, [facility] V28); Overweight (BMI 25.0-29.9); Sensory neuropathy 02/09/2025 Telephone Adult Medicine [address] [phone] Nya Palomino MD 02/09/2025 Telephone Adult Medicine [address] [phone] Nya Palomino MD 01/21/2025 Telephone Adult Medicine [address] [phone] Nya Palomino MD 01/15/2025 Telephone Adult Medicine [address] [phone] Nya Palomino MD 12/31/2024 Telephone Adult Medicine [address] [phone] Nya Palomino MD 12/29/2024 11:56 AM EDT - 12/29/2024 11:59 PM EDT Hospital Encounter [facility] [address] [place] [phone] Other polyneuropathy Discharge Disposition: Home or Self Care from Last 3 Months Immunizations Name Administration Dates Next Due Hepatitis A-Hepatitis B Adul t (Twinrix) 18yo and older 10/27/2010,05/30/2010,04/28/2010 Influenza Quadravalent, MDCK , 0.5ml, preservative free (Flucelvax) 6mo and older 04/06/2023,04/14/2022 Influenza trivalent, MDCK, 0 .5mL, preservative free (Flucelvax) 6mo and older 03/02/2024 Influenza trivalent, with pr eservative (Fluzone; Afluria) 6mo and older 02/22/2020,02/21/2019,06/06/2018 Influenza, Unspecified 02/21/2019,06/06/2018 Moderna (age 6mo & older) Bi valent, COVID-19, 0.5 mL or 0.25 mL dosage 06/16/2022 Pneumococcal conjugate 20 va lent (Prevnar 20, PCV 20) 2mo and older 10/13/2024 Td Tetanus diptheria (Tdvax) 7yo and older 11/09 Tdap Tetanus diptheria acell ular pertussis (Boostrix; Adacel) 7yo and older 07/01/2007 Zoster recombinant (Shingrix ) 19yo and older 04/14/2022,01/11/2022 Surgical History Surgery Date Site/Laterality Comments HYSTERECTOMY 1996 PROCEDURE: HISTORICAL HYSTERECTOMY; COMMENT: bleeding; fibroids, endometriosis Medical History Medical History Date Comments Depressive disorder, not els ewhere classified 08/14/2005 DX:Depressive disorder, not elsewhere classified Endometriosis DX:Endometriosis Anxiety state, unspecified 08/14/2005 DX:An xiety state, unspecified Hepatitis C antibody test positive 06/24/2012 DX:Hepatitis C antibody test positive Family History Medical History Relation Name Comments Other: hepatitis C Brother 1 Hyperthyroidism Daughter RA Alcohol abuse Father Diabetes Mother colon cancer Depression Other pat cousins Arthritis Sister fibromyalgia, c eliac disease; HLD Other: DM Son RA Breast cancer Neg Hx Relation Name Status Comments Brother 1 Brother 2 3 brothers-subs tance abuse Daughter Father (Age 68) Mother (Age 76) Other Sister Son Alive Social History Tobacco Use Types Packs/Day Years [...] care for your loved ones. For example, attendant children's institution or elderly care for an older adult? [...] on file Sexual Orientation Not on file Obstetrics History Last Filed Vital Signs Vital Sign Reading [...] Mass Index 27.72 03/06/2025 8:02 AM EDT Plan of Treatment Upcoming Encounters Date Type Department Care Team (Late st Contact Info) Description 06/10/2025 4:00 PM EST Office Visit Adult Medicine [address] [phone] Nya Palomino MD [address] [place] [address] Health Maintenance Due Date Last Done Comments Diabetes: Annual Retina Eye Exam 1972 Cervical Cancer Screening: Pap Smear 04/23/2021 04/23/2018 HIV Screening 06/10/2022 RSV Immunization Adult Patients (1 - Risk 60-74 years 1-dose series) 2022 Breast Cancer Screening 11/10/2023 11/10/19, 01/21/2019, 01/14/2019 Diabetes: Annual Urine Albumin-Creatinine Ratio (uACR) 01/10/2025 COVID-19 Vaccine (7 - Moderna risk season) 2025 03/02/2024, 06/16/2022, 01/11/2022, Additional history exists Influenza Vaccine (#1) 2025 , 04/06/2023, 04/14/2022, Additional history exists Diabetes: Blood Sugar Control Test (HGBA1C) 07/12/2025 01/09/2025, 08/14/2024, 02/04/2024 Social Influencers of Health Screening 08/13/2025 08/13/2024 Diabetes: Annual Foot Exam 10/13/202510/13, 10/13/2024, 10/13/2024, Additional history exists Diabetes: Annual GFR (Glomerular Filtration Rate) 01/09/2026 01/09/2025, 08/14/2024 Hypertension/CHF/CAD Annual BMP Blood Test 01/09/2026 01/09/2025, 08/14/2024 Cholesterol Screening (Lipid Panel) 01/09/2030 01/09/2025, 08/14/2024, 02/04/2024, Additional history exists DTaP,Tdap,and Td Vaccines (3 - Td or Tdap) 11/10/2031 11/09/2021, 07/01/2007 Colorectal Cancer Screening: Colonoscopy 08/07/2033 08/07/2023 Hepatitis A Vaccines Aged Out 10/27/2010, 05/30/2010, 04/28/2010 No longer eligible based on patient's age to complete this topic Hepatitis B Vaccines Completed 10/27/2010, 05/30/2010, 04/28/2010 Zoster Vaccines Completed 04/14/2022, 01/11/2022 Pneumococcal Vaccine: 50+ Years Completed 10/13/2024 Hepatitis C Screening Completed 01/09/2025, 012 Depression Screening Completed 02/27/2025 HIB Vaccines Aged Out No longer eligi ble based on patient's age to complete this topic HPV Vaccines Aged Out No longer eligi ble based on patient's age to complete this topic IPV Vaccines Aged Out No longer eligi ble based on patient's age to complete this topic MMR Vaccines Aged Out No longer eligi ble based on patient's age to complete this topic Meningococcal ACWY Vaccine Aged Out N o longer eligible based on patient's age to complete this topic Meningococcal B Vaccine Aged Out No l onger eligible based on patient's age to complete this topic RSV Immunization Patients Under 20 months Aged Out No longer eligible based on patient's age to complete this topic Varicella Vaccines Aged Out No longer eligible based on patient's age to complete this topic Procedures Procedure Name Priority Date/Time Associated Diagnosis Comments HEPATITIS C VIRUS QUANTITATIVE PCR Routine 01/09/2025 8:05 AM EDT Hepatitis C antibody test positive Chronic hepatitis C without hepatic coma (CMS/HCC V24, CMS/HCC V28) LIPID PANEL WITH REFLEX TO DIRECT LDL Routine 01/09/2025 8:05 AM EDT Hypercholesterolemia HEMOGLOBIN A1C Routine 01/09/2025 8:05 AM EDT Prediabetes COMPREHENSIVE METABOLIC PANEL Routine 01/09/2025 8:05 AM EDT Prediabetes THYROID STIMULATING HORMONE WITH REFLEX TO FREE T4 AND FREE T3 Routine 01/09/2025 8:05 AM EDT Hyperthyroidism EMG Routine 12/29/2024 12:58 PM EDT Other polyneuropathy SCREENING MAMMOGRAPHY BI 2-VIEW BREAST INC CAD Routine 11/09/2021 5:41 PM EDT Encounter for screening mammogram for malignant neoplasm of breast from Last 3 Months or Most Recently Relevant to Health Maintenance Results * Thyroid stimulating hormone with reflex to free t4 and free t3 (01/09/2025 8:05 AM EDT) TSH 1.56 0.40 - 4.00 mcIU/mL LAB CHEMISTRY METHOD 01/09/2025 11:32 AM EDT [facility] ([facility]) [facility] Blood Venous blood specimen / Unknown Venipuncture / Unknown 01/09/2025 8:05 AM EDT 01/09/2025 8:05 AM EDT Nya Palomino MD LAB BLOOD ORDERA BLES Final Result Performing Organization Address City/[facility]/ZIP Co de Phone Number [facility] [address] [place] [address], [place] [phone] * (ABNORMAL) Lipid panel with reflex to direct LDL (01/09/2025 8:05 AM EDT) Cholesterol 202(H) 0 - 200 mg/dL LAB CHEMISTRY METHOD 01/09/2025 10:34 AM EDT [facility] Triglycerides 195(H) 0 - 150 mg/dL LAB CHEMISTRY METHOD 01/09/2025 10:34 AM EDT [facility] HDL 48 >=40 mg/dL LAB CHEMISTRY METHOD 01/09/2025 10:34 AM EDT [facility] LDL Calculated 115(H) 0 - 100 mg/dL LAB CHEMISTRY METHOD 01/09/2025 10:34 AM EDT [facility] VLDL Cholesterol Timo 39 mg/dL LAB CHEMISTRY METHOD 01/09/2025 10:34 AM EDT [facility] Non HDL Chol. (LDL+VLDL) 154(H) <145 mg/dL LAB CHEMISTRY METHOD 01/09/2025 10:34 AM EDT [facility] Chol/HDL Ratio 4.2 0.0 - 4.4 LAB CHEMISTRY METHOD 01/09/2025 10:34 AM EDT [facility] Blood Venous blood specimen / Unknown Venipuncture / Unknown 01/09/2025 8:05 AM EDT 01/09/2025 8:05 AM EDT Nya Palomino MD LAB BLOOD ORDERA BLES Final Result [facility] [address] [place] [address], [place] [phone] * Hepatitis C virus quantitative molecular study (01/09/2025 8:05 AM EDT) HCV Qual Interp Not Detected Not Detected LAB MOLECULAR DIAGNOSTICS METHOD 01/09/2025 12:20 PM EDT [facility] Comment:HCV RNA not detected , unable to report quantitative results. Blood Venous blood specimen / Unknown Venipuncture / Unknown 01/09/2025 8:05 AM EDT 01/09/2025 8:05 AM EDT Nya Palomino MD LAB BLOOD ORDERA BLES Final Result Performing Organization Address [facility]/ZIP Co de Phone Number [facility] [address] [place] [address], [place] [phone] * (ABNORMAL) Hemoglobin A1c (01/09/2025 8:05 AM EDT) [facility] Hemoglobin A1C 6.7(H) <6.5 % LAB CHEMISTRY METHOD 01/09/2025 1:40 PM EDT [facility] Mean Bld Glu Estim. 146 mg/dL LAB CHEMISTRY METHOD 01/09/2025 1:40 PM EDT [facility] Blood Venous blood specimen / Unknown Venipuncture / Unknown 01/09/2025 8:05 AM EDT 01/09/2025 8:05 AM EDT Nya Palomino MD LAB BLOOD ORDERA BLES Final Result [facility] [address] [place] [address], [place] [phone] * (ABNORMAL) Comprehensive metabolic panel (01/09/2025 8:05 AM EDT) [facility] Sodium 139 133 - 145 mmol/L LAB CHEMISTRY METHOD 01/09/2025 10:34 AM EDT [facility] Potassium 4.7 3.5 - 5.5 mmol/L LAB CHEMISTRY METHOD 01/09/2025 10:34 AM [facility] Chloride 107 96 - 110 mmol/L LAB CHEMISTRY METHOD 01/09/2025 10:34 AM [facility] CO2 26 21 - 32 mmol/L LAB CHEMISTRY METHOD 01/09/2025 10:34 AM [facility] Anion Gap 6 3 - 11 LAB CHEMISTRY METHOD 01/09/2025 10:34 AM [facility] Glucose 104(H) 70 - 100 mg/dL LAB CHEMISTRY METHOD 01/09/2025 10:34 AM [facility] BUN 11 5 - 25 mg/dL LAB CHEMISTRY METHOD 01/09/2025 10:34 AM [facility] Creatinine 0.84 0.50 - 1.10 mg/dL LAB CHEMISTRY METHOD 01/09/2025 10:34 AM [facility] eGFR 79 >=60 mL/min/1. 73m2 LAB CHEMISTRY METHOD 01/09/2025 10:34 AM [facility] Comment:Calculation based on the Chronic Kidney Disease Epidemiology Collaboration (CKD-EPI) equation refit without adjustment for race. BUN/Creatinine Ratio 13.1 LAB CHEMISTRY METHOD 01/09/2025 10:34 AM [facility] Calcium 9.6 8.5 - 10.5 mg/dL LAB CHEMISTRY METHOD 01/09/2025 10:34 AM [facility] AST (SGOT) 23 10 - 42 unit/L LAB CHEMISTRY METHOD 01/09/2025 10:34 AM [facility] ALT (SGPT) 33 10 - 60 unit/L LAB CHEMISTRY METHOD 01/09/2025 10:34 AM [facility] Alkaline Phosphatase 56 42 - 121 unit/L LAB CHEMISTRY METHOD 01/09/2025 10:34 AM [facility] Total Protein 7.1 6.0 - 8.0 g/dL LAB CHEMISTRY METHOD 01/09/2025 10:34 AM EDT [facility] Albumin 4.0 3.2 - 5.0 g/dL LAB CHEMISTRY METHOD 01/09/2025 10:34 AM EDT [facility] Total Bilirubin 0.3 0.0 - 1.4 mg/dL LAB CHEMISTRY METHOD 01/09/2025 10:34 AM EDT [facility] Blood Venous blood specimen / Unknown Venipuncture / Unknown 01/09/2025 8:05 AM EDT 01/09/2025 8:05 AM EDT us Nya Palomino MD LAB BLOOD ORDERA BLES Final Result [facility] [address] [place] [address], * EMG (12/29/2024 12:58 PM EDT) Narrative Delvin Cortes MD - 12/29/2024 4:37 PM EDT Images from the original result were not included. [facility] [address] [place] [address] Electromyograph Report Date of service: 12/29/24 Patient Name: Hair Herron Date of : 1960 Age: 64 y.o. Gender: female Procedure Order: EMG Ordering Provider: Nya Palomino MD Reason for Exam: There are no answered order specific questions. Diagnosis listed on Order: Other polyneuropathy Please see scanned report for testing details and results. Procedure Note Delvin Cortes MD - 12/29/2024 Images from the original note were not included. [facility] [address] [place] [address] Electromyograph Report Date of service: 12/29/24 Patient Name: Hair Herron Date of : 1960 Age: 64 y.o. Gender: female Procedure Order: EMG Ordering Provider: Nya Palomino MD Reason for Exam: There are no answered order specific questions. Diagnosis listed on Order: Other polyneuropathy Please see scanned report for testing details and results. EDT Nya Palomino MD NEUROLOGY ORDERA BLES Final Result * SCREENING MAMMOGRAPHY BI 2-VIEW BREAST INC CAD (11/09/2021 5:41 PM EDT) Anatomical Region Laterality Modality Radiographic Susan ging 05/03/2021 4:02 PM EDT Narrative 11/09/2021 5:50 PM EDT This is a summary report. The complete report is available in the patient's medical record. If you cannot access the medical record, please contact the sending organization for a detailed fax or copy. Full field digital screening 2D and tomosynthesis mammography, reviewed with CAD and compared to previous. The breasts are composed of fatty and fibroglandular tissue. No suspicious mass, architectural distortion or suspicious calcifications are identified. IMPRESSION: : No mammographic evidence of malignancy. BIRADS 1-Negative; N. 5 year breast cancer risk assessment 0.9 % Lifetime breast cancer risk assessment 5.0 % Breast cancer risk category Low (<15%) Procedure Note Jennifer Beltran MD - 06/20/2022 This is a summary report. The complete report is available in thepatient's medical record. If you cannot access the medical record, pleasecontact the sending organization for a detailed fax or copy. Full field digital screening 2D and tomosynthesis mammography, reviewedwith CAD and compared to previous. The breasts are composed of fatty andfibroglandular tissue. No suspicious mass, architectural distortion orsuspicious calcifications are identified. IMPRESSION: : No mammographic evidence of malignancy. BIRADS 1-Negative; N. 5 year breast cancer risk assessment 0.9 % Lifetime breast cancer risk assessment 5.0 % Breast cancer risk category Low (<15%) Zo Cazares MD IMG XR PROCEDURES Final Result from Last 3 Months or Most Recently Relevant to Health Maintenance Insurance [facility] Care Teams Upholstery Cutter Relationship Specialty Start Date End Date Nya Palomino MD [address] [place] [phone] PCP - General 07/04/23
== END 2025-03-10 12:47 | disposition home or self-care (01) ==
LOC: HO.MAMMO 12:46
PROVIDERS: PCP Family Medicine; Visit Provider Family Medicine
DX: Z13.89 Encounter for screening for other disorder (principal)

== ENCOUNTER 2025-05-04 12:16 | Outpatient (AMB) | payer BC, SELFPAY ==
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
--- OUTSIDE RECORDS SUMMARY | 2025-05-04 15:30 | XMS_ITS | Data Portability ---
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 Plan of Treatment Reminders Order Date Submit Date Provider Last Modified By Organization Details Last Modified Time Details Appointments FOLLOW UP 2024 11:15A M Dr. Ceballos Not available Not available Not available Lab None recorded. Referral physical therapist referral 2023 024 MAGDALENA Not available 01/04/2025 05:00:56 Procedures None recorded. Surgeries None recorded. Imaging None recorded. Medication Orders None recorded. Patient TargetsNo targets recorded. Patient Instructions Encounter Date Encounter Id Patient Instructions Last Modified By Organization Details Last Modified Time 12/26/2023 [id number] pt will go for therapy ,periscapular ,deltoid ,rotator cuff strengthening ;left shoulder. Not available 12/28/2023 19:09:20 02/27/2024 [id number] pt presents with stiffness ,left shoulder;pt has discomfort and is performing home therapy. Not available 02/27/2024 14:32:06 04/30/2024 [id number] pt with stiffnes s left shoulder,mpt will continue with periscapular strengthening left shoulder. Not available 04/30/2024 14:09:35 07/30/2024 [id number] pt with stiffnes s , ;pain left shoulder ,patient will continue with home therapy. Not available 07/30/2024 17:01:18 12/31/2024 [id number] patient will continue with home therapy and is totally disabled for the foreseeable future. Not available 01/01/2025 09:51:10 Reason for Referral Physical Therapist Referral for Subacromial impingement Referring Physician: Alonzo Ceballos, Orthopedic Surgery, Encounter Date: 12/26/2023 Procedures Surgical History Date Name Laterality Status Provider Name and Address Organization Details Recorded Time 10/29/19 24 arthroscopy of shoulder completed marisel lee [place] [facility] 10/30/2023 09:36:03 04/17/20 23 complete repair of rotator cuff completed marisel lee [place] [facility] 07/11/2023 11:51:14 Hysterectomy completed marisel lee [place] [facility] 07/11/2023 11:51:42 Imaging Results None recorded. Procedure Notes None recorded. Medical Equipment None Reported. Allergies No known drug allergies Medications Name Sig Start Date Stop Date Status Note LastModified by Organization Details LastModified Time metoprolol succinate ER 50 mg tablet,exten ded release 24 hr TAKE 1 TABLET BY MOUTH DAILY active Not Available Not Available Not Available bacitracin 500 unit/gram topical ointment APPLY TOPICALLY TO THE AFFECTED AREA TWICE DAILY FOR 14 DAYS active Not Available Not Available No t Available acetaminophe n 500 mg tablet TAKE 2 TABLETS BY MOUTH EVERY 8 HOURS FOR MILD PAIN active Not Available Not Available No t Available triamcinolon e acetonide 0.1 % topical cream APPLY TO ITCHY RED AREA ON RIGHT FLANK TWICE DAILY. DECREASE USE SYMPTOMS IMPROVE active Not Available Not Available No t Available aspirin 325 mg tablet,delay ed release TAKE 1 TABLET BY MOUTH DAILY FOR BLOOD CLOT PREVENTION active Not Available Not Available N ot Available amlodipine 5 mg-benazepri l 20 mg capsule TAKE 1 CAPSULE BY MOUTH DAILY active Not Available Not Available Not Available diclofenac potassium 50 mg tablet TAKE 1 TABLET BY MOUTH TWICE DAILY active Not Available Not Available No t Available methimazole 5 mg tablet TAKE 1 TABLET BY MOUTH DAILY active Not Available Not Available Not Available hydroxyzine HCl 25 mg tablet TAKE 1 TABLET BY MOUTH AT BEDTIME NEEDED FOR ANXIETY OR INSOMNIA active Not Available Not Available No t Available bisacodyl 5 mg tablet,delay ed release TAKE 2 TABLETS BY MOUTH BEFORE BEGINNING BOWEL PREP. FOLLOW INSTRUCTION S GIEVN BY OFFICE. active Not Available Not Available No t Available ibuprofen 600 mg tablet TAKE 1 TABLET BY MOUTH EVERY 8 HOURS FOR MODERATE PAIN. MAX 2400 MG DAILY active Not Available Not Available No t Available methimazole 10 mg tablet TAKE 1/2 TABLET BY MOUTH DAILY active Not Available Not Available Not Available losartan 50 mg-hydrochlo rothiazide 12.5 mg tablet TAKE 1 TABLET BY MOUTH 1 TIME EACH DAY active Not Available Not Available No t Available doxycycline hyclate 100 mg tablet TAKE 1 TABLET BY MOUTH TWICE DAILY FOR 7 DAYS active Not Available Not Available No t Available oxycodone 5 mg tablet TAKE 1 TABLET BY MOUTH EVERY 4 HOURS active Not Available Not Available No t Available azithromycin 500 mg tablet TAKE 1 TABLET BY MOUTH DAILY active Not Available Not Available Not Available rosuvastatin 5 mg tablet TAKE 1 TABLET BY MOUTH DAILY active Not Available Not Available Not Available Florastor 250 mg capsule TAKE 1 CAPSULE BY MOUTH EVERY DAY active Not Available Not Available No t Available GaviLyte-G 236 gram-22.74 gram-6.74 gram-5.86 gram oral solution MIX AND TAKE DIRECTED UNTIL RECTALS RUN CLEAR STARTING AT 6PM THE NIGHT BEFORE PROCEDURE. active Not Available Not Available N ot Available Stimulant Laxative Plus 8.6 mg-50 mg tablet TAKE 2 TABLETS BY MOUTH AT BEDTIME NEEDED FOR COSTIPATION active Not Available Not Available Not Available Zepbound 2.5 mg/0.5 mL subcutaneous pen injector ADMINISTER 2.5 MG UNDER THE SKIN EVERY 7 DAYS active Not Available Not Available No t Available Vitals Date Recorded Body height Body mass index (BMI) Body weight Provider Name and Address Organization Details Last Updated DateTime 07/30/2024 160.02 cm 26.9 kg/m2 61034.04 g marisel lee [place] [facility] 07/30/2024 08:07:55 Date Recorded Body height Body mass index (BMI) Body weight Provider Name and Address Organization Details Last Updated DateTime 12/26/2023 160.02 cm 26.9 kg/m2 07749.04 g marisel lee [place] [facility] 12/26/2023 13:55:17 Date Recorded Body height Body mass index (BMI) Body weight Provider Name and Address Organization Details Last Updated DateTime 12/31/2024 160.02 cm 26.9 kg/m2 11411.04 g marisel lee [place] [facility] 12/31/2024 08:18:56 Date Recorded Body height Body mass index (BMI) Body weight Provider Name and Address Organization Details Last Updated DateTime 02/27/2024 160.02 cm 26.9 kg/m2 12605.04 g marisel lee [place] [facility] 02/27/2024 10:40:18 Social History None recorded. Functional Status None recorded. Mental Status None recorded. Family History Nothing Reported. Medical History Condition Response Diabetes Y Hypertension Y Gynecological HistoryNo gynecological history recorded. Obstetrics History GPAL:G 0 P 0 0 0 0 Past Encounters Encounter ID Performer Location Encounter Start Date Encounter Closed Date Diagnosis/Indication Diagnosis SNOMED-CT Code Diagnosis ICD10 Code Diagnosis IMO Codes Diagnosis Note [id number] Alonzo Ceballos MD [facility] [address] [place] [address] 07/11/2023 11:31:00 07/12/2023 16:31:35 Subacromial impingement 900749415 M75.42 Pain of acromioclavicular joint 547148673 M25.519 Biceps tendinitis 179415 007 M75.22 [id number] Alonzo Ceballos MD [facility] [address] [place] [address] 08/29/2023 10:06:19 09/03/2023 14:23:51 Subacromial impingement 512271005 M75.42 Pain of acromioclavicular joint 312120943 M25.519 Biceps tendinitis 781537 007 M75.22 Full thick ness rotator cuff tear 651497798 M75.122 [id number] Alonzo Ceballos MD [facility] [address] [place] [address] 09/26/2023 12:40:57 09/26/2023 18:56:24 Subacromial impingement 548295716 M75.42 Osteolysis of left distal clavicle 4000584529 522461 M89.512 Tendinosis of left biceps brachii 2153888582 8461359 M67.814 Full thick ness rotator cuff tear 597604164 M75.122 [id number] [facility] [address] [place] [address] 11/06/2023 12:23:02 11/06/2023 13:08:03 Subacromial impingement 075165614 M75.42 Full thick ness rotator cuff tear 544533648 M75.121 Biceps tendinitis 205993 007 M75.21 [id number] Alonzo Ceballos MD [facility] [address] [place] [address] 12/26/2023 13:53:30 12/31/2023 09:45:36 Subacromial impingement 776661704 M75.42 Full thick ness rotator cuff tear 016345336 M75.121 Biceps tendinitis 815238 007 M75.21 [id number] Alonzo Ceballos MD [facility] [address] [place] [address] 02/27/2024 10:39:42 02/27/2024 15:11:06 Subacromial impingement 581329458 M75.42 Full thick ness rotator cuff tear 977458562 M75.122 Biceps tendinitis 032946 007 M75.22 [id number] Alonzo Ceballos MD [facility] [address] [place] [address] 04/30/2024 10:36:08 04/30/2024 14:11:03 Subacromial impingement 894245098 M75.42 Full thick ness rotator cuff tear 102394530 M75.122 Biceps tendinitis 300989 007 M75.22 [id number] Alonzo Ceballos MD [facility] [address] [place] [address] 07/30/2024 08:07:20 07/30/2024 17:04:25 Subacromial impingement 027741678 M75.42 Full thick ness rotator cuff tear 979580049 M75.122 Biceps tendinitis 656018 007 M75.22 [id number] Alonzo Ceballos MD [facility] [address] [place] [address] 12/31/2024 08:18:25 01/06/2025 16:13:28 Subacromial impingement 690696837 M75.42 Full thick ness rotator cuff tear 921881952 M75.122 Biceps tendinitis 681564 007 M75.22 Health Concerns Section Related Observation LastModified by Organization Detai ls LastModified Time None Recorded Concern Status LastModified by Organization Details LastModified Time None Recorded Advance Directives Directive None Recorded Payers Insurance Date Sequence Insurance Name Policy Number Policy Carpenter Covered Member ID Carpenter Member ID Guarantor Name 04/28/2024 [id number] Eusebia Herron Notes Date Note Type Note Provider Name and Address Organization Details Recorded Time 12/26/2023 text/html ShoulderReported by Patient pt with stiffness and discomfort on motion ;left shoulder;improving. ALONZO CEBALLOS MD [address] [place], [address], [place] [facility] 12/28/2023 19:09:56 02/27/2024 text/html ShoulderReported by Patient Patient presents with pain and stiffness ,left shoulder with discomort;patient continues with therapy ,left shoulder. ALONZO CEBALOLS MD [address] [place], [address], [place] [facility] 02/27/2024 14:32:31 04/30/2024 text/html pt presents for evaluation concerning her left shoulder.pt will continue with activity. ALONZO CEBALLOS MD [address] [place], [address], [place] [facility] 04/30/2024 14:10:06 07/30/2024 text/html ShoulderReported by Patient pt with left shoulder stiffness ,presents for evaluation left shoulder ;performing home therapy. ALONZO CEBALLOS MD [address] [place], [address], [place] [facility] 07/30/2024 17:01:46 12/31/2024 text/html ShoulderReported by Patientstiffness left shoulder complains of weakness lifting objects. ALONZO CEBALLOS MD [address] [place], [address], [place] [facility] 01/01/2025 09:51:49 OBGyn Episode No OBEpisode recorded.
--- OUTSIDE RECORDS SUMMARY | 2025-05-04 15:30 | XMS_ITS ---
Author Name [facility] Organization Unknown Care Team Organization Name Specialty Phone Email Start Date End Da te [facility] 05/09/2022 4
== END 2025-05-04 13:28 | disposition home or self-care (01) ==
PROVIDERS: PCP Family Medicine; Visit Provider Psychiatry & Neurology Neurology
DX: G62.9 Polyneuropathy, unspecified (principal); M79.2 Neuralgia and neuritis, unspecified
CPT/HCPCS: 99204

== ENCOUNTER 2025-05-04 12:16 | Outpatient (REF) | payer BC, SELFPAY ==
[2025-05-05 12:09] LABS: Lyme Abs Screen <0.90 index
[2025-05-05 21:24] LABS: Prot Elec - Albumin 4.1 g/dL (3.8-4.8); Prot Elec - Alpha1 0.3 g/dL (0.2-0.3); Prot Elec - Alpha2 0.7 g/dL (0.5-0.9); Prot Elec - Beta 1 0.5 g/dL (0.4-0.6); Prot Elec - Beta 2 0.4 g/dL (0.2-0.5); Prot Elec - Gamma 0.7 g/dL (0.8-1.7); Prot Elec - Total Protein 6.7 g/dL (6.1-8.1)
== END 2025-05-04 12:17 | disposition home or self-care (01) ==
LOC: HO.LAB 12:16
PROVIDERS: PCP Family Medicine; Visit Provider Psychiatry & Neurology Neurology
DX: G62.9 Polyneuropathy, unspecified (principal)
CPT/HCPCS: 36415; 82784; 84165; 86334; 86617; 86618